=== PATIENT | female | born 2000 | race Two or more races ===

== ENCOUNTER 2023-12-18 14:20 | Outpatient (CLI) | payer OTHER | END 2023-12-18 14:23 | disposition home or self-care (01) | LOC: PRENATAL 14:20 | PROVIDERS: ATTEND Obstetrics & Gynecology Maternal & Fetal Medicine | DX: O36.80X0 Pregnancy with inconclusive fetal viability, not applicable or unspecified (principal); Z36.82 Encounter for antenatal screening for nuchal translucency; O34.31 Maternal care for cervical incompetence, first trimester; Z3A.12 12 weeks gestation of pregnancy ==

== ENCOUNTER → 2024-01-11 | Day surgery (SDC) | payer OTHER ==
[2024-01-09 11:33] LABS: HEMATOCRIT 36.1 % (36.0-45.00); HEMOGLOBIN 12.3 g/dL (12.0-15.00); MEAN CELL VOLUME 88.9 fL (80.00-100.00); MEAN CORPUSCULAR HEMOGLOBIN 30.3 pg (27.00-32.0); MEAN CORPUSCULAR HGB CONC 34.1 g/dl (32.0-36.0); PLATELET COUNT 226 K/uL (150-450); RED BLOOD COUNT 4.07 M/uL (4.00-6.00); RED CELL DISTRIBUTION WIDTH 14.2 % (11.5-14.5)
[2024-01-09 11:50] LABS: INR 0.97; PARTIAL THROMBOPLASTIN TIME 27.3 SECONDS (22.0-34.0); PROTHROMBIN TIME 10.6 SECONDS (9.0-11.5)
[~2024-01-11] MED LIST: METRONIDAZOLE/SODIUM CHLORIDE 500 MG/100 ML PIGGYBACK IV ONE; POVIDONE-IODINE 118 ML BOTT TOP ONE
== END | disposition home or self-care (01) ==
LOC: CIR.AMB 09:27
PROVIDERS: Obstetrics & Gynecology; ATTEND Obstetrics & Gynecology Maternal & Fetal Medicine
DX: O34.32 Maternal care for cervical incompetence, second trimester (principal); Z3A.16 16 weeks gestation of pregnancy; E16.2 Hypoglycemia, unspecified

== ENCOUNTER 2024-01-22 14:46 | Outpatient (CLI) | payer OTHER | END 2024-01-22 14:47 | disposition home or self-care (01) | LOC: PRENATAL 14:46 | PROVIDERS: ATTEND Obstetrics & Gynecology Maternal & Fetal Medicine | DX: O26.849 Uterine size-date discrepancy, unspecified trimester (principal); O34.30 Maternal care for cervical incompetence, unspecified trimester; Z3A.17 17 weeks gestation of pregnancy ==

== ENCOUNTER 2024-02-07 08:01 | Outpatient (CLI) | payer OTHER | END 2024-02-07 08:03 | disposition home or self-care (01) | LOC: PRENATAL 08:01 | PROVIDERS: ATTEND Obstetrics & Gynecology Maternal & Fetal Medicine | DX: O35.3XX0 Maternal care for (suspected) damage to fetus from viral disease in mother, not applicable or unspecified (principal); O44.00 Complete placenta previa NOS or without hemorrhage, unspecified trimester; O28.3 Abnormal ultrasonic finding on antenatal screening of mother; O34.30 Maternal care for cervical incompetence, unspecified trimester; Z3A.20 20 weeks gestation of pregnancy ==

== ENCOUNTER 2024-03-06 09:59 | Outpatient (CLI) | payer OTHER | END 2024-03-06 10:00 | disposition home or self-care (01) | LOC: PRENATAL 09:59 | PROVIDERS: ATTEND Obstetrics & Gynecology Maternal & Fetal Medicine | DX: O26.849 Uterine size-date discrepancy, unspecified trimester (principal); O44.00 Complete placenta previa NOS or without hemorrhage, unspecified trimester; O28.3 Abnormal ultrasonic finding on antenatal screening of mother; O34.30 Maternal care for cervical incompetence, unspecified trimester; Z3A.24 24 weeks gestation of pregnancy ==

== ENCOUNTER 2024-04-03 09:24 | Outpatient (CLI) | payer OTHER | END 2024-04-03 09:25 | disposition home or self-care (01) | LOC: PRENATAL 09:24 | PROVIDERS: ATTEND Obstetrics & Gynecology Maternal & Fetal Medicine | DX: O44.00 Complete placenta previa NOS or without hemorrhage, unspecified trimester (principal); O26.849 Uterine size-date discrepancy, unspecified trimester; O28.3 Abnormal ultrasonic finding on antenatal screening of mother; O34.30 Maternal care for cervical incompetence, unspecified trimester; Z3A.27 27 weeks gestation of pregnancy ==

== ENCOUNTER 2024-05-01 09:31 | Outpatient (CLI) | payer OTHER | END 2024-05-01 09:33 | disposition home or self-care (01) | LOC: PRENATAL 09:31 | PROVIDERS: ATTEND Obstetrics & Gynecology Maternal & Fetal Medicine | DX: O26.849 Uterine size-date discrepancy, unspecified trimester (principal); O36.8199 Decreased fetal movements, unspecified trimester, other fetus; O28.3 Abnormal ultrasonic finding on antenatal screening of mother; O34.30 Maternal care for cervical incompetence, unspecified trimester; Z3A.31 31 weeks gestation of pregnancy ==

== ENCOUNTER → 2024-05-29 09:04 | Outpatient (CLI) | payer OTHER | END | disposition home or self-care (01) | LOC: PRENATAL 09:04 | PROVIDERS: ATTEND Obstetrics & Gynecology Maternal & Fetal Medicine | DX: O26.849 Uterine size-date discrepancy, unspecified trimester (principal); O36.8199 Decreased fetal movements, unspecified trimester, other fetus; O28.3 Abnormal ultrasonic finding on antenatal screening of mother; O34.30 Maternal care for cervical incompetence, unspecified trimester; Z3A.36 36 weeks gestation of pregnancy ==

== ENCOUNTER 2024-06-05 07:30 | Inpatient (IN) | payer OTHER ==
[~2024-06-05] VITALS: Ht 165.1 cm; Wt 109.3 kg
[2024-06-05 07:52] VITALS: BP 121/78
[2024-06-05] MEDS ORDERED: PRENATAL + DHA1 EAC1 PO (08:00)
[2024-06-05 08:02] VITALS: BP 124/78
[2024-06-05 09:29] LABS: URINE APPEARANCE Clear; URINE BILIRRUBIN Negative (NEGATIVE); URINE BLOOD Negative; URINE COLOR Yellow; URINE GLUCOSE Negative (NEGATIVE); URINE KETONE Negative (NEGATIVE); URINE LEUKOCYTE Moderate; URINE NITRATE Negative; URINE PROTEIN Negative (NEGATIVE); URINE UROBILINOGEN 0.2 E.U./dl
[2024-06-05] MEDS ORDERED: RINGERS SOLUTION,LACTATED 1,000 ML IV SCH (09:30)
[2024-06-05 09:33] LABS: URINE BACTERIA 3145.6 uL (0.0-1933); URINE EPITHELIAL CELLS 109.2 uL (0.0-38.8); URINE RBC 3.9 uL (0.0-20.8); URINE WBC 94.6 uL (0.0-23.2)
[2024-06-05 09:52] LABS: URINE CAST 0.14 uL (0.0-1.40)
[2024-06-05 09:55] LABS: INR < 0.93; PARTIAL THROMBOPLASTIN TIME 25.4 SECONDS (22.0-34.0); PROTHROMBIN TIME 10.2 SECONDS (9.0-11.5)
[2024-06-05 10:07] LABS: HEMATOCRIT 33.6 % (36.0-45.00); HEMOGLOBIN 11.6 g/dL (12.0-15.00); MEAN CELL VOLUME 88.5 fL (80.00-100.00); MEAN CORPUSCULAR HEMOGLOBIN 30.6 pg (27.00-32.0); MEAN CORPUSCULAR HGB CONC 34.5 g/dl (32.0-36.0); PLATELET COUNT 205 K/uL (150-450); RED CELL DISTRIBUTION WIDTH 13.2 % (11.5-14.5)
[2024-06-05 11:28] VITALS: BP 115/78
[2024-06-05] MEDS ORDERED: OXYTOCIN 10 UNITS/ML VIAL ONE (14:38)
[2024-06-05] MEDS ORDERED: ERYTHROMYCIN BASE OPHT 1GM EACH TUBE OP ONE (14:39)
[2024-06-05] MEDS ORDERED: CHLORHEXIDINE GLUCONATE 120 ML BOTTLE TOP ONE (16:31)
[2024-06-05] MEDS ORDERED: MEPERIDINE HCL/PF 50 MG/ML VIAL IM PRN (17:45)
[2024-06-05] MEDS ORDERED: PROMETHAZINE HCL 50 MG/ML AMPUL IM PRN (17:45)
[2024-06-05 22:14] VITALS: BP 109/66
[2024-06-06 01:03] VITALS: BP 100/58
[2024-06-06 06:49] LABS: HEMATOCRIT 29.3 % (36.0-45.00); HEMOGLOBIN 10.1 g/dL (12.0-15.00); MEAN CELL VOLUME 89.8 fL (80.00-100.00); MEAN CORPUSCULAR HEMOGLOBIN 30.9 pg (27.00-32.0); MEAN CORPUSCULAR HGB CONC 34.4 g/dl (32.0-36.0); PLATELET COUNT 190 K/uL (150-450); RED BLOOD COUNT 3.26 M/uL (4.00-6.00); RED CELL DISTRIBUTION WIDTH 12.8 % (11.5-14.5)
[2024-06-06] MEDS ORDERED: DOCUSATE SODIUM 100MG CAP PO SCH (08:00)
[2024-06-06] MEDS ORDERED: OxyCODONE HCL/APAP UD (PERCOCET) PO PRN (08:00)
[2024-06-06 08:06] VITALS: BP 110/72
[2024-06-06] MEDS ORDERED: SIMETHICONE 125 MG CAPSULE PO SCH (09:00)
[2024-06-06] MEDS ORDERED: PNV,CALCIUM 72/IRON/FOLIC ACID 1 TAB TABLET PO SCH (09:00)
[2024-06-06] MEDS ORDERED: KETOROLAC TROMETHAMINE 30 MG VIAL IM STA (13:48)
[2024-06-06] MEDS ORDERED: KETOROLAC TROMETHAMINE 30 MG VIAL ONE (13:49)
[2024-06-06 15:03] VITALS: BP 113/74
[2024-06-06] MEDS ORDERED: IBUprofen 800 MG TABLET PO SCH (21:00)
[2024-06-07 00:34] VITALS: BP 99/62
[2024-06-07 08:00] VITALS: BP 97/65
[2024-06-07 16:00] VITALS: BP 119/79
[2024-06-07 20:00] VITALS: BP 117/72
[2024-06-08] VITALS: BP 104/74
[2024-06-08 09:00] VITALS: BP 108/76
== END 2024-06-08 12:37 | disposition home or self-care (01) | DRG 786 ==
LOC: OB/GYN 07:30 → LDR 07:30 → O/R 15:22 → OB/GYN 17:22
PROVIDERS: ADMIT Obstetrics & Gynecology; ATTEND Obstetrics & Gynecology
PROC: 0UCC0ZZ Extirpation of Matter from Cervix, Open Approach (ICD-10-PCS; 2024-06-05)
PROC: 4A1HXCZ Monitoring of Products of Conception, Cardiac Rate, External Approach (ICD-10-PCS; 2024-06-05)
PROC: 10D00Z1 Extraction of Products of Conception, Low, Open Approach (ICD-10-PCS; principal; 2024-06-05 16:15)
DX: O32.8XX0 Maternal care for other malpresentation of fetus, not applicable or unspecified (principal); O34.33 Maternal care for cervical incompetence, third trimester; Z3A.37 37 weeks gestation of pregnancy; Z37.0 Single live birth